=== PATIENT | male | born 1960 | race Caucasian/White ===

== ENCOUNTER 2020-11-18 19:38 | Emergency (ER) | payer SELFPAY ==
[2020-11-18] MEDS ORDERED: Fentanyl 100 MCG/2 ML VIAL ONE (19:56)
[2020-11-18] MEDS ORDERED: Ketorolac Tromethamine 30 MG/ML VIAL ONE (19:57)
[2020-11-18] MEDS ORDERED: Ondansetron PF 4 MG/2 ML Vial ONE ×2 (19:57→20:51)
[2020-11-18] MEDS ORDERED: HYDROmorphone 0.5 MG/0.5 ML SYRINGE ONE (20:51)
== END 2020-11-18 22:11 | disposition short-term general hospital (02) ==
LOC: BURERS 19:38
DX: S92.002A Unspecified fracture of left calcaneus, initial encounter for closed fracture (principal); S92.001A Unspecified fracture of right calcaneus, initial encounter for closed fracture; F17.220 Nicotine dependence, chewing tobacco, uncomplicated; B19.20 Unspecified viral hepatitis C without hepatic coma; W17.89XA Other fall from one level to another, initial encounter
CPT/HCPCS: 28400; 96374; 96375; 96376; J1170; J1885; J2405; J3010